=== PATIENT | female | born 2000 | race Caucasian/White ===

== ENCOUNTER 2022-11-25 11:19 | Outpatient (OUT) | payer OTHER, SELFPAY ==
[2022-11-25 11:43] LABS: Basophils Percent Auto 0.2 % (0.2-2.0); Eosinophils Absolute Auto 0.1 10^3/uL (0.0-0.7); Eosinophils Percent Auto 1.6 % (0.9-7.0); Hematocrit 40.9 % (36.0-48.0); Hemoglobin 13.6 g/dL (12.0-16.0); Immature Granulocytes Abs Auto 0.04 10^3/uL (0.00-0.03); Immature Granulocytes Pct Auto 0.5 % (0.0-0.5); Lymphocytes Absolute Auto 3.1 10^3/uL (1.2-3.8); Lymphocytes Percent Auto 35.4 % (20.5-60.0); Mean Corpuscular HGB Conc 33.3 g/dL (29.9-35.2); Mean Corpuscular Hemoglobin 28.2 pg (26.7-34.0); Mean Corpuscular Volume 84.9 fL (81.0-99.0); Mean Platelet Volume 9.3 fL (9.5-13.5); Monocytes Absolute Auto 0.8 10^3/uL (0.3-0.8); Monocytes Percent Auto 9.3 % (1.7-12.0); Neutrophils Absolute Auto 4.6 10^3/uL (1.4-6.5); Platelet Count 314 10^3/uL (150-450); Red Blood Count 4.82 10^6/uL (4.20-5.40); Red Cell Distribution Width 13.2 % (11.0-15.0); White Blood Count 8.7 10^3/uL (4.0-11.0)
[2022-11-25 11:54] LABS: Estimated Average Glucose 105 mg/dL; Glycohemoglobin A1C 5.3 % (4.5-6.2)
[2022-11-25 12:41] LABS: Alanine Aminotransferase 21 U/L (14-59); Albumin Globulin Ratio 0.8; Albumin Level 3.3 g/dL (3.4-5.0); Alkaline Phosphatase 57 U/L (46-116); Anion Gap 11.7; Aspartate Amino Transferase 16 U/L (15-37); BUN Creatinine Ratio 16.9; Bilirubin Total 0.3 mg/dL (0.2-1.0); Calcium 9.5 mg/dL (8.5-10.1); Chloride 101 mmol/L (98-107); Estimated GFR (African America >60 (>=60); Estimated GFR (Non-African Ame >60 (>=60); Free T3 4.62 pg/mL (2.18-3.98); Globulin 4.3 g/dL; Glucose 99 mg/dL (74-106); Potassium 3.7 mmol/L (3.5-5.1); Sodium 133 mmol/L (136-145); Thyroid Stimulating Hormone 3.791 uIU/mL (0.358-3.740); Total Protein 7.6 g/dL (6.4-8.2)
[2022-11-25 13:38] LABS: Free T4 0.93 ng/dL (0.76-1.46)
[2022-11-26 10:08] LABS: Insulin 54.1 uIU/mL (2.6-24.9)
== END 2022-11-25 11:20 | disposition home or self-care (01) ==
LOC: LAB 11:19
PROVIDERS: PCP Family Medicine; Visit Provider Family Medicine
DX: R53.83 Other fatigue (principal); Z79.899 Other long term (current) drug therapy; L65.9 Nonscarring hair loss, unspecified
CPT/HCPCS: 36415; 80053; 82607; 82728; 82746; 83036; 83525; 83540; 84439; 84443; 84481; 85025

== ENCOUNTER 2023-09-21 13:50 | Outpatient (OUT) | payer OTHER, SELFPAY ==
[2023-09-21 14:36] LABS: Basophils Percent Auto 0.3 % (0.2-2.0); Eosinophils Absolute Auto 0.2 10^3/uL (0.0-0.7); Eosinophils Percent Auto 1.4 % (0.9-7.0); Hematocrit 39.9 % (36.0-48.0); Hemoglobin 13.3 g/dL (12.0-16.0); Immature Granulocytes Abs Auto 0.04 10^3/uL (0.00-0.03); Immature Granulocytes Pct Auto 0.4 % (0.0-0.5); Lymphocytes Absolute Auto 3.6 10^3/uL (1.2-3.8); Lymphocytes Percent Auto 33.7 % (20.5-60.0); Mean Corpuscular HGB Conc 33.3 g/dL (29.9-35.2); Mean Corpuscular Hemoglobin 28.7 pg (26.7-34.0); Mean Corpuscular Volume 86.2 fL (81.0-99.0); Mean Platelet Volume 10.3 fL (9.5-13.5); Monocytes Absolute Auto 0.7 10^3/uL (0.3-0.8); Monocytes Percent Auto 6.7 % (1.7-12.0); Neutrophils Percent Auto 57.5 % (43.0-75.0); Platelet Count 355 10^3/uL (150-450); Red Blood Count 4.63 10^6/uL (4.20-5.40); Red Cell Distribution Width 12.6 % (11.0-15.0); White Blood Count 10.5 10^3/uL (4.0-11.0)
[2023-09-21 15:13] LABS: Estimated Average Glucose 103 mg/dL; Glycohemoglobin A1C 5.2 % (4.5-6.2)
[2023-09-21 15:57] LABS: Alanine Aminotransferase 19 U/L (14-59); Albumin Globulin Ratio 0.9; Albumin Level 3.6 g/dL (3.4-5.0); Alkaline Phosphatase 79 U/L (46-116); Aspartate Amino Transferase 13 U/L (15-37); BUN Creatinine Ratio 21.4; Bilirubin Total 0.4 mg/dL (0.2-1.0); Calcium 9.3 mg/dL (8.5-10.1); Chloride 100 mmol/L (98-107); Chol HDL Ratio 5.6; Cholesterol 197 mg/dL (<=200); Estimated GFR (African America >60 (>=60); Estimated GFR (Non-African Ame >60 (>=60); Free T3 4.97 pg/mL (2.18-3.98); Glucose 92 mg/dL (74-106); HDL Cholesterol 35 mg/dL (40-60); Sodium 137 mmol/L (136-145); Thyroid Stimulating Hormone 0.039 uIU/mL (0.358-3.740); Total Protein 7.6 g/dL (6.4-8.2); Triglycerides 274 mg/dL (<=150); VLDL CHOLESTEROL 54.8 mg/dL
[2023-09-22 04:07] LABS: Insulin 80.3 uIU/mL (2.6-24.9)
== END 2023-09-21 13:51 | disposition home or self-care (01) ==
PROVIDERS: PCP Family Medicine; Visit Provider Family Medicine
DX: Z00.00 Encounter for general adult medical examination without abnormal findings (principal)
CPT/HCPCS: 36415; 80053; 80061; 83036; 83525; 84436; 84443; 84481; 85025

== ENCOUNTER 2023-12-06 13:59 | Outpatient (OUT) | payer OTHER, SELFPAY ==
[2023-12-06 14:37] LABS: Estimated Average Glucose 94 mg/dL; Glycohemoglobin A1C 4.9 % (4.5-6.2)
[2023-12-06 15:39] LABS: Free T3 3.62 pg/mL (2.18-3.98); Thyroid Stimulating Hormone 3.234 uIU/mL (0.358-3.740)
[2023-12-07 08:12] LABS: Insulin 54.6 uIU/mL (2.6-24.9)
== END 2023-12-06 14:00 | disposition home or self-care (01) ==
LOC: LAB 14:03
PROVIDERS: PCP Family Medicine; Visit Provider Family Medicine
DX: R73.03 Prediabetes (principal); E03.9 Hypothyroidism, unspecified
CPT/HCPCS: 36415; 83036; 83525; 84436; 84443; 84481

== ENCOUNTER 2024-11-16 15:13 | Outpatient (OUT) | payer OTHER, SELFPAY ==
[2024-11-16 16:02] LABS: Hematocrit 41.1 % (36.0-48.0); Hemoglobin 14.1 g/dL (12.0-16.0); Immature Granulocytes Abs Auto 0.06 10^3/uL (0.00-0.03); Immature Granulocytes Pct Auto 0.5 % (0.0-0.5); Lymphocytes Absolute Auto 3.3 10^3/uL (1.2-3.8); Mean Corpuscular HGB Conc 34.3 g/dL (29.9-35.2); Mean Corpuscular Hemoglobin 29.7 pg (26.7-34.0); Mean Corpuscular Volume 86.7 fL (81.0-99.0); Platelet Count 384 10^3/uL (150-450); Red Blood Count 4.74 10^6/uL (4.20-5.40); White Blood Count 12.5 10^3/uL (4.0-11.0)
[2024-11-16 16:11] LABS: Alanine Aminotransferase 20 U/L (14-59); Albumin Globulin Ratio 1.0; Albumin Level 3.9 g/dL (3.4-5.0); Alkaline Phosphatase 64 U/L (46-116); Anion Gap 15.5; Aspartate Amino Transferase 14 U/L (15-37); Blood Urea Nitrogen 13.0 mg/dL (7.0-18.0); Calcium 9.8 mg/dL (8.5-10.1); Carbon Dioxide 24.5 mmol/L (21.0-32.0); Chloride 102 mmol/L (98-107); Cholesterol 205 mg/dL (<=200); Estimated GFR (African America >60 (>=60 mL/min/1.73m^2); Estimated GFR (Non-African Ame >60 (>=60 mL/min/1.73m^2); Free T3 3.22 pg/mL (2.18-3.98); Globulin 4.0 g/dL; Glucose 105 mg/dL (74-106); HDL Cholesterol 37 mg/dL (40-60); Potassium 4.0 mmol/L (3.5-5.1); Sodium 138 mmol/L (136-145); Thyroid Stimulating Hormone 4.252 uIU/mL (0.358-3.740); Total Protein 7.9 g/dL (6.4-8.2); Triglycerides 311 mg/dL (<=150); VLDL CHOLESTEROL 62.2 mg/dL
--- OUTSIDE RECORDS SUMMARY | 2024-11-16 17:27 | XMS_ITS | CCD ---
Author Organization [facility] [employer] ion [facility] Care Team Providers Care Water Quality Specialist Name Role Phone ISIDRO ., DR STRAUSS Attending Unavailable HOY ., DR STRAUSS Admitting Unavailable HOY ., DR STRAUSS Primary Care Unavailable HOY ., DR STRAUSS Consulting Unavailable HOY ., DR STRAUSS Attending Unavailable HOY ., DR STRAUSS Admitting Unavailable HOY ., DR STRAUSS Primary Care Unavailable Results Test Name Value Interpretation Reference Range Facil ity INSULINon 07-07-2022 Insulin 45.4 uIU/mL Critically high 2.6-24.9 [facility] Comment on above: Performed By: #### I NSULIN #### [facility] [address] [place] [address] Dr. Tonya Fry CBC AUTO DIFFon 07-06-2022 BASO # 0.0 103/ul Normal 0.0-0.1 [facility] Comment on above: Performed By: #### C BC #### [facility] [address] [place] [address] Dr. Tonya Fry Basophils/100 WBC (Bld) 0.2 % Normal 0.2-2.0 [facility] Comment on above: Performed By: #### C BC #### [facility] [address] [place] [address] Dr. Tonya Fry EO # 0.2 103/ul Normal 0.0-0.7 [facility] Comment on above: Performed By: #### C BC #### [facility] [address] [place] [address] Dr. Tonya Fry Eosinophils/100 WBC (Bld) 1.6 % Normal 0.9-7.0 [facility] Comment on above: Performed By: #### C BC #### [facility] [address] [place] [address] Dr. Tonya Fry Erythrocyte distribution width (RBC) [Ratio] 13.9 % Normal 11.0-15.0 [facility] Comment on above: Performed By: #### C BC #### [facility] [address] [place] [address] Dr. Tonya Fry Hematocrit (Bld) [Volume fraction] 40.0 % Normal 36.0-48.0 [facility] Comment on above: Performed By: #### C BC #### [facility] [address] [place] [address] Dr. Tonya Fry Hemoglobin (Bld) [Mass/Vol] 13.5 g/dL Normal 12.0-16.0 [facility] Comment on above: Performed By: #### C BC #### [facility] [address] [place] [address] Dr. Tonya Fry IG # 0.04 10e3/ul Critically high 0.00-0.03 [facility] Comment on above: Performed By: #### C BC #### [facility] [address] [place] [address] Dr. Tonya Fry IG % 0.3 % Normal 0.0-0.5 [facility] Comment on above: Performed By: #### C BC #### [facility] [address] [place] [address] Dr. Tonya Fry LYMPH # 3.6 103/ul Normal 1.2-3.8 [facility] Comment on above: Performed By: #### C BC #### [facility] [address] [place] [address] Dr. Tonya Fry Lymphocytes/100 WBC (Bld) 29.4 % Normal 20.5-60.0 [facility] Comment on above: Performed By: #### C BC #### [facility] [address] [place] [address] Dr. Tonya Fry MANUAL DIFF REQ NO Normal [facility] Comment on above: Performed By: #### C BC #### [facility] [address] [place] [address] Dr. Tonya Fry MCH (RBC) [Entitic mass] 29.0 pg Normal 26.7-34.0 [facility] Comment on above: Performed By: #### C BC #### [facility] [address] [place] [address] Dr. Tonya Fry MCHC (RBC) [Mass/Vol] 33.8 g/dL Normal 29.9-35.2 [facility] Comment on above: Performed By: #### C BC #### [facility] [address] [place] [address] Dr. Tonya Fry MCV (RBC) [Entitic vol] 86.0 fL Normal 81.0-99.0 [facility] Comment on above: Performed By: #### C BC #### [facility] [address] [place] [address] Dr. Tonya Fry MONO # 0.8 103/ul Normal 0.3-0.8 [facility] Comment on above: Performed By: #### C BC #### [facility] [address] [place] [address] Dr. Tonya Fry Monocytes/100 WBC (Bld) 6.2 % Normal 1.7-12.0 [facility] Comment on above: Performed By: #### C BC #### [facility] [address] [place] [address] Dr. Tonya Fry NEUT # 7.7 103/ul Critically high 1.4-6.5 [facility] Comment on above: Performed By: #### C BC #### [facility] [address] [place] [address] Dr. Tonya Fry Neutrophils/100 WBC (Bld) 62.3 % Normal 43.0-75.0 [facility] Comment on above: Performed By: #### C BC #### [facility] [address] [place] [address] Dr. Tonya Fry Platelet mean volume (Bld) [Entitic vol] 9.4 fL Critically low 9.5-13.5 [facility] Comment on above: Performed By: #### C BC #### [facility] [address] [place] [address] Dr. Tonya Fry PLT 350 103/ul Normal 150-450 [facility] Comment on above: Performed By: #### C BC #### [facility] [address] [address] [address] Tonya Fry RBC 4.65 106/ul Normal 4.20-5.40 [facility] Comment on above: Performed By: #### C BC #### [facility] [address] [address] [address] Tonya Fry WBC 12.3 103/ul Critically high 4.0-11.0 [facility] Comment on above: Performed By: #### C BC #### [facility] [address] [address] [address] Tonya Fry DIRECT LDLon 07-06-2022 Cholesterol in LDL [Mass/Vol] 99 mg/dL Normal [facility] Comment on above: Performed By: #### T 7, TSH, CMP, DLDL, LIPID #### [facility] [address] [address] [address] Tonya Fry DLDL NORMAL SEE BELOW Normal [facility] Comment on above: Result Comment: <100 mg/dl OPTIMAL 100 - 129 mg/dl NEAR OR ABOVE OPTIMAL 130 - 159 mg/dl BORDERLINE HIGH 160 - 189 mg/dl HIGH >190 mg/dl VERY HIGH Performed By: #### T 7, TSH, CMP, DLDL, LIPID #### [facility] [address] [address] [address] Tonya Fry FREE THYROXINE INDEX T7on FTI 3.07 Normal 1.30-4.50 [facility] Comment on above: Performed By: #### T 7, TSH, CMP, DLDL, LIPID #### [facility] [address] [address] [address] Tonya Fry T3U 26.0 % Critically low 30.0-39.[address] [facility] Comment on above: Performed By: #### T 7, TSH, CMP, DLDL, LIPID #### [facility] [address] [address] [address] Tonya Fry T4 [Mass/Vol] 11.80 ug/dL Normal 4.80-13.90 [facility] Comment on above: Performed By: #### T 7, TSH, CMP, DLDL, LIPID #### [facility] [address] [place] [address] Dr. Tonya Fry GLYCOHEMOGLOBIN A1Con 2022 ADA RECOMMENDATION SEE BELOW Normal [facility] Comment on above: Result Comment: ADA RECOMMENDED LIMIT 4.0 - 6.0 ADA THERAPEUTIC TARGET < 7.0 ACTION SUGGESTED > 7.0 Performed By: #### A 1C #### [facility] [address] [place] [address] Dr. Tonya Fry Glucose [Mass/Vol] 108 mg/dL Normal [facility] Comment on above: Performed By: #### A 1C #### [facility] [address] [place] [address] Dr. Tonya Fry HbA1c (Bld) [Mass fraction] 5.4 % Normal 4.5-6.2 [facility] Comment on above: Performed By: #### A 1C #### [facility] [address] [place] [address] Dr. Tonya Fry IRONon 07-06-2022 Iron [Mass/Vol] 51.0 ug/dL Normal 50.0-170.0 [facility] Comment on above: Performed By: #### I YUDITH #### [facility] [address] [place] [address] Dr. Tonya Fry LIPID PROFILEon 07-06-2022 CHOL-HDL RATIO NORM SEE BELOW Normal [facility] Comment on above: Result Comment: 3.3 - 4.4 LOW RISK 4.4 - 7.1 AVERAGE RISK 7.1 - 11.0 MODERATE RISK >11.0 HIGH RISK Performed By: #### T 7, TSH, CMP, DLDL, LIPID #### [facility] [address] [place] [address] Dr. Tonya Fry Cholesterol [Mass/Vol] 199 mg/dL Normal <=200 [facility] Comment on above: Performed By: #### T 7, TSH, CMP, DLDL, LIPID #### [facility] [address] [place] [address] Dr. Tonya Fry Cholesterol in HDL [Mass/Vol] 38 mg/dL Critically low 40-60 [facility] Comment on above: Performed By: #### T 7, TSH, CMP, DLDL, LIPID #### [facility] [address] [address] [address] Tonya Fry Cholesterol.total/Cho lesterol in HDL [Mass ratio] 5.2 {ratio} Normal [facility] Comment on above: Performed By: #### T 7, TSH, CMP, DLDL, LIPID #### [facility] [address] [address] [address] Tonya Fry HDL NORMAL > or = 60 mg/dl - LOW CARDIOVASCULAR RISK <40 mg/dl - HIGH CARDIOVASCULAR RISK Normal [facility] Comment on above: Performed By: #### T 7, TSH, CMP, DLDL, LIPID #### [facility] [address] [place] [address] Dr. Tonya Fry LDL CALC NORMAL SEE BELOW Normal [facility] Comment on above: Result Comment: <100 mg/dl OPTIMAL 100 - 129 mg/dl NEAR OR ABOVE OPTIMAL 130 - 159 mg/dl BORDERLINE HIGH 160 - 189 mg/dl HIGH >190 mg/dl VERY HIGH Performed By: #### T 7, TSH, CMP, DLDL, LIPID #### [facility] [address] [address] [address] Tonya Fry Triglyceride [Mass/Vol] 459 mg/dL Critically high <=150 [facility] Comment on above: Performed By: #### T 7, TSH, CMP, DLDL, LIPID #### [facility] [address] [place] [address] Dr. Tonya Fry VLDL CALC 91.8 mg/dL Normal [facility] Comment on above: Performed By: #### T 7, TSH, CMP, DLDL, LIPID #### [facility] [address] [address] [address] Tonya Fry PROF 14(COMP METB)on 023 Albumin [Mass/Vol] 3.6 g/dL Normal 3.4-5.0 [facility] Comment on above: Performed By: #### T 7, TSH, CMP, DLDL, LIPID #### [facility] [address] [place] [address] Dr. Tonya Fry Albumin/Globulin [Mass ratio] 0.9 {ratio} Normal [facility] Comment on above: Performed By: #### T 7, TSH, CMP, DLDL, LIPID #### [facility] [address] [place] [address] Dr. Tonya Fry ALP [Catalytic activity/Vol] 53 U/L Normal 46-116 [facility] Comment on above: Performed By: #### T 7, TSH, CMP, DLDL, LIPID #### [facility] [address] [place] [address] Dr. Tonya Fry ALT [Catalytic activity/Vol] 18 U/L Normal 14-59 [facility] Comment on above: Performed By: #### T 7, TSH, CMP, DLDL, LIPID #### [facility] [address] [place] [address] Dr. Tonya Fry Anion gap [Moles/Vol] 16.3 mmol/L Normal [facility] Comment on above: Performed By: #### T 7, TSH, CMP, DLDL, LIPID #### [facility] [address] [place] [address] Dr. Tonya Fry AST [Catalytic activity/Vol] 15 U/L Normal 15-37 [facility] Comment on above: Performed By: #### T 7, TSH, CMP, DLDL, LIPID #### [facility] [address] [place] [address] Dr. Tonya Fry Bilirubin [Mass/Vol] 0.3 mg/dL Normal 0.2-1.0 [facility] Comment on above: Performed By: #### T 7, TSH, CMP, DLDL, LIPID #### [facility] [address] [place] [address] Dr. Tonya Fry Calcium [Mass/Vol] 9.6 mg/dL Normal 8.5-10.1 [facility] Comment on above: Performed By: #### T 7, TSH, CMP, DLDL, LIPID #### [facility] [address] [address] [address] Tonya Fry Chloride [Moles/Vol] 102 mmol/L Normal 98-107 [facility] Comment on above: Performed By: #### T 7, TSH, CMP, DLDL, LIPID #### [facility] [address] [address] [address] Tonya Fry CO2 [Moles/Vol] 23.6 mmol/L Normal 21.0-32.0 [facility] Comment on above: Performed By: #### T 7, TSH, CMP, DLDL, LIPID #### [facility] [address] [address] [address] Tonya Fry Creatinine [Mass/Vol] 0.72 mg/dL Normal 0.55-1.02 [facility] Comment on above: Performed By: #### T 7, TSH, CMP, DLDL, LIPID #### [facility] [address] [address] [address] Tonya Fry EGFR-AF DANISH >60 Normal >=60 [facility] Comment on above: Performed By: #### T 7, TSH, CMP, DLDL, LIPID #### [facility] [address] [address] [address] Tonya Fry EGFR-NON AF DANISH >60 Normal >=60 [facility] Comment on above: Performed By: #### T 7, TSH, CMP, DLDL, LIPID #### [facility] [address] [address] [address] Tonya Fry Globulin (S) [Mass/Vol] 3.9 g/dL Normal [facility] Comment on above: Performed By: #### T 7, TSH, CMP, DLDL, LIPID #### [facility] [address] [address] [address] Tonya Fry Glucose [Mass/Vol] 101 mg/dL Normal 74-106 [facility] Comment on above: Performed By: #### T 7, TSH, CMP, DLDL, LIPID #### [facility] [address] [address] [address] Tonya Fry Potassium [Moles/Vol] 3.9 mmol/L Normal 3.5-5.1 [facility] Comment on above: Performed By: #### T 7, TSH, CMP, DLDL, LIPID #### [facility] [address] [address] [address] Tonya Fry Protein [Mass/Vol] 7.5 g/dL Normal 6.4-8.2 [facility] Comment on above: Performed By: #### T 7, TSH, CMP, DLDL, LIPID #### [facility] [address] [address] [address] Tonya Fry Sodium [Moles/Vol] 138 mmol/L Normal 136-145 [facility] Comment on above: Performed By: #### T 7, TSH, CMP, DLDL, LIPID #### [facility] [address] [address] [address] Tonya Fry Urea nitrogen [Mass/Vol] 12.0 mg/dL Normal 7.0-18.0 [facility] Comment on above: Performed By: #### T 7, TSH, CMP, DLDL, LIPID #### [facility] [address] [address] [address] Tonya Fry Urea nitrogen/Creatinine [Mass ratio] 16.7 mg/mg Normal [facility] Comment on above: Performed By: #### T 7, TSH, CMP, DLDL, LIPID #### [facility] [address] [address] [address] Tonya Fry TSHon 07-06-2022 TSH 24.722 uIU/mL Critically high 0.358-3.740 [facility] Comment on above: Performed By: #### T 7, TSH, CMP, DLDL, LIPID #### [facility] [address] [address] [address] Tonya Fry Encounters Encounter Date Encounter Type Care Provider Facility Start: 07-13-2022 Encounter for genera l adult medical examination without abnormal findings DR RICA FELIX . [facility] Start: 07-06-2022 End: 07-07-[address] RICA FELIX . Facility: Start: 07-06-2022 End: 07-07-2022 Encounter for general adult medical examination without abnormal findings DR RICA FELIX . Facility:[facility] Start: 07-28-[address] RICA FELIX . Facili ty:[facility] Payers Date Payer Category Payer Unknown [id number] 2002 Unknown [id number] 1957 Self-pay 1957 Unknown [id number] Summary Purpose Family History No Family History Records Found Advance Directives No Advanced Directives Records Found Additional Source Comments INFORMATION SOURCE (unrecogn ized section and content) DATE CREATED AUTHOR [facility]14/2022 [facility] FOR RECORDS PERTAINING TO PATIENTS WHO ARE OR HAVE BEEN ENROLLED IN A CHEMICAL DEPENDENCY/SUBSTANCEABUSE PROGRAM, SOME INFORMATION MAY BE OMITTED. This clinical summary was aggregated from multiple sources. Caution should be exercised in using it in the provision of clinical care. This summary normalizes information from multiple sources, and as a consequence, information in this document may materially change the coding, format and clinical context of patient data. In addition, data may be omitted in some cases. CLINICAL DECISIONS SHOULD BE BASED ON THE PRIMARY CLINICAL RECORDS. [employer] provides no warranty or guarantee of the accuracy or completeness of information in this document.
== END 2024-11-16 15:14 | disposition home or self-care (01) ==
LOC: LAB 15:14
PROVIDERS: PCP Family Medicine; Visit Provider Family Medicine
DX: Z00.00 Encounter for general adult medical examination without abnormal findings (principal); R73.03 Prediabetes
CPT/HCPCS: 36415; 80053; 80061; 83036; 83525; 84436; 84443; 84481; 85025